=== PATIENT | male | born 1985 ===

== ENCOUNTER → 2018-08-22 21:39 | Outpatient (REF) | payer SELFPAY ==
[2018-08-22 21:59] LABS: Add Manual Diff / Slide Review NO; Eosinophils Percent Auto 2.3 % (2-4); Hematocrit 46.3 % (41-53); Hemoglobin 15.7 g/dL (13.5-17.5); Lymphocytes Percent Auto 28.5 % (25-40); Mean Corpuscular HGB Conc 33.8 % (30-36); Mean Corpuscular Hemoglobin 30.9 PG (26-34); Mean Corpuscular Volume 91.2 fL (80-100); Monocytes Percent Auto 14.4 % (3-14); Neutrophils Absolute Auto 4000 /uL (3000-5900); Neutrophils Percent Auto 53.8 % (50-75); Platelet Count 278 X10^3/uL (150-400); Red Blood Cell Count 5.08 X10^6/uL (4.5-5.9); Red Cell Distribution Width 13.2 % (11.6-14.8); White Blood Cell Count 7.5 X10^3/uL (4.5-11.0)
[2018-08-24 14:27] LABS: PSA Total 0.33 ng/mL (< 4.01)
[2018-08-24 15:25] LABS: Estradiol 29 pg/mL (< 40)
[2018-08-24 15:56] LABS: Sex Hormone Binding Globulin 15 nmol/L (10-50)
[2018-08-27 20:54] LABS: Testosterone Free 27.8 pg/mL (35.0-155.0); Testosterone Total 114 ng/dL (250-1100)
== END ==
LOC: LAB 21:39
PROVIDERS: Visit Provider Naturopath
DX: E29.1 Testicular hypofunction (principal)
CPT/HCPCS: 82670; 84153; 84154; 84270; 84402; 84403; 85025